=== PATIENT | male | born 1990 | race Caucasian/White ===

== ENCOUNTER → 2022-12-23 | Outpatient (CLI) | payer OTHER ==
[2022-12-23 20:39] LABS: Bun/Creatinine Ratio 21.7 (12.0-20.0); Creatinine, Blood 0.97 mg/dL (0.60-1.20); Magnesium, Blood 2.5 mg/dL (1.6-2.4); Potassium, Blood 4.1 mmol/L (3.5-5.5)
[2022-12-26 13:14] LABS: FERRITIN 197 ng/mL (30-400)
[2022-12-26 14:14] LABS: IRON BIND.CAP.(TIBC) 349 ug/dL (250-450); IRON SATURATION 19 % (15-55); IRON, SERUM 66 ug/dL (38-169); UIBC 283 ug/dL (111-343)
[2022-12-28 12:15] LABS: FREE TESTOSTERONE(DIRECT) 6.9 pg/mL (8.7-25.1); TESTOSTERONE, SERUM 204 ng/dL (264-916)
== END ==
LOC: LAB 19:33 → LAB SHORT 19:33
PROVIDERS: Family Medicine
DX: D50.9 Iron deficiency anemia, unspecified (principal); R25.2 Cramp and spasm; R79.89 Other specified abnormal findings of blood chemistry
CPT/HCPCS: 80048; 82728; 83540; 83550; 83735; 84402; 84403

== ENCOUNTER → 2023-03-10 | Outpatient (CLI) | payer OTHER ==
[2023-03-14 19:08] LABS: FREE TESTOSTERONE(DIRECT) 10.1 pg/mL (8.7-25.1); TESTOSTERONE, SERUM 198 ng/dL (264-916)
== END ==
LOC: LAB SHORT 18:40 → LAB 18:40
PROVIDERS: Family Medicine
DX: E29.1 Testicular hypofunction (principal)
CPT/HCPCS: 84402; 84403

== ENCOUNTER → 2023-07-28 | Outpatient (CLI) | payer OTHER ==
[2023-08-03 13:16] LABS: TESTOSTERONE, FREE BY DIALYSIS 69.9 pg/mL (47.0-244.0); TESTOSTERONE, TOTAL MASS SPEC 233.6 ng/dL (300.0-1080.0)
== END | disposition home or self-care (01) ==
LOC: LAB SHORT 09:35
PROVIDERS: Family Medicine
DX: E29.1 Testicular hypofunction (principal)
CPT/HCPCS: 84402; 84403

== ENCOUNTER → 2024-04-26 | Outpatient (CLI) | payer OTHER ==
[2024-05-02 16:44] LABS: TESTOSTERONE, FREE BY DIALYSIS 21.5 pg/mL (47.0-244.0)
== END ==
LOC: LAB 18:26 → LAB SHORT 18:26
PROVIDERS: Family Medicine
DX: R79.89 Other specified abnormal findings of blood chemistry (principal)
CPT/HCPCS: 84402; 84403

== ENCOUNTER → 2024-09-13 | Outpatient (CLI) | payer OTHER ==
[2024-09-13 19:55] LABS: Ferritin, Serum 58 ng/mL (26-388); Iron Serum 96 ug/dL (65-175); Magnesium, Blood 2.4 mg/dL (1.6-2.4); Percent Saturation 23.3 % (20.0-50.0); Total Iron Binding Capacity 412 ug/dL (250-450)
[2024-09-13 20:00] LABS: Alanine Aminotransfer (ALT/SGP 44 U/L (12-78); Albumin, Blood 4.2 g/dL (3.4-5.0); Albumin/Globulin Ratio 1.3 (0.8-1.8); Alk Phos 118 U/L (50-136); Anion Gap 9 mmol/L (3-11); Aspartate Aminotrans (AST/SGOT 30 U/L (12-37); Bilirubin, Direct <0.1 mg/dL (0.0-0.3); Bilirubin, Indirect Unable to Calculate mg/dL (0.1-0.7); Bilirubin, Total 0.2 mg/dL (0.1-1.0); Blood Urea Nitrogen 22 mg/dL (8-24); CO2, Blood 29 mmol/L (21-32); Calcium, Blood 9.1 mg/dL (8.5-10.1); Chloride, Blood 102 mmol/L (98-108); Creatinine, Blood 1.05 mg/dL (0.60-1.20); Globulin, Blood 3.2 g/dL (2.2-4.0); Glomerular Filtration Rate 96 (60-); Glucose, Blood 91 mg/dL (70-99); Potassium, Blood 4.6 mmol/L (3.5-5.5); Sodium, Blood 135 mmol/L (136-145); Total Protein, Blood 7.4 g/dL (6.4-8.2)
[2024-09-24 07:28] LABS: TESTOSTERONE, FREE BY DIALYSIS 96.9 pg/mL (47.0-244.0); TESTOSTERONE, TOTAL MASS SPEC 419.6 ng/dL (300.0-1080.0)
== END ==
LOC: LAB SHORT 15:56 → LAB 15:56
PROVIDERS: Family Medicine
DX: E29.1 Testicular hypofunction (principal); R25.2 Cramp and spasm
CPT/HCPCS: 80053; 82248; 82728; 83540; 83550; 83735; 84402; 84403